=== PATIENT | female | born 1960 | race Caucasian/White ===

== ENCOUNTER 2017-12-27 18:32 | Inpatient (IN) ==
[2017-12-27] MEDS ORDERED: Isovue-370 500 ML INFUS..BTL IV ONE (21:46)
[2017-12-27] MEDS ORDERED: Acetaminophen 325 MG TABLET PO PRN (21:58)
[2017-12-27] MEDS ORDERED: traMADol 50 MG TABLET PO PRN (21:58)
--- NOTE | 2017-12-27 22:00 | Internal Med History&Physical ---
Date of Encounter: 12/27/17 Time of Encounter: 21:56 Internal Medicine - H&P: HPI Chief complaint: leg ulcer Admitted From: Home Plans for Post Hospital Care: Home History of present illness: Puja Bryant is a 57 year old woman with morbid obesity, tobacco dependence, and chronic venous stasis with ulceration who was admitted to [facility] about 2 weeks ago for sepsis due to left leg cellulitis due with failure of oral outpatient therapy. At the time she was noted to have group B Strep in her blood cultures and Pseudomonas in her wound however on chart review it appears she was discharged on IV ceftriaxone for an unclear amount of time. She followed with wound care as outpatient who added TMP/SMX due to ongoing inflammatory signs with swelling, erythema and warmth. There was concern for deep tissue infection with debridement done as per note from 12/21/17. Today she was sent to [facility] ER by wound care due to ongoing signs and is now referred here for admission. On arrival here she narrates that she has been suffering from lymphedema for years and that last year she had a fracture which required a cast. The base of the cast caused an ulceration on her skin which required wound care and antibiotics. A few months later she had another trauma to the area which has led to this spiral of events. She confirms that she was initially on vancomycin during her last hospitalization then discharged with 1 week of ceftriaxone, then last Thursday was Rx TMP/SMX then on Thursday Rx ciprofloxacin. However there has been minimal improvement. She denies fever and chills. She has applied a plethora of topical agents with no avail. She has been a chronic smoker. Past Med Surg Social Fam HX - Past Medical History Medical history: arthritis, GERD, migraine, venous stasis Psychiatric history: no psych history - Past Surgical History Surgical History: cholecystectomy, other Additional surgical history: Tubal ligation, Left foot broken 2017 - Social History Smoking Status: Former smoker Smokeless Tobacco Status: No Alcohol use: none Drug use: none - Family History Sister Living Status: Hx Family Cancer: Yes Father Living Status: Hx Family Cancer: Yes Internal Medicine - H&P: Meds Diclofenac Sodium [Voltaren] 75 mg PO BID 06/18/16 [History] Oxybutynin [Ditropan] 5 mg PO BID 02/20/17 [History] Naproxen Sodium [All Day Relief] 2 tab PO BID 12/12/17 [History] CefTRIAXone (wt based) [Rocephin] 2,000 mg INTRAVEN DAILY #7 vial 12/16/17 [Rx] Sulfamethoxazole/Trimeth DS [Bactrim DS] 1 each PO BID #20 tablet 12/21/17 [Rx] Tramadol HCl [Ultram] 50 mg PO BID PRN 7 Days #14 tab 12/21/17 [Rx] Ciprofloxacin HCl [Cipro] 500 mg PO BID #20 tablet 12/23/17 [Rx] 3 Allergy/AdvReac Type Severity Reaction Status Date / Time clindamycin Allergy Vomiting Verified 12/12/17 19:06 All Systems PM: A 10-system review of systems was performed and is negative for pertinent findings except as documented above in the HPI. - Constitutional Exam: Vitals: Reviewed General: Obese, NAD Skin: Multiple ulcerative skin breakdown changes with purulence on the medial aspect of her left leg; no foul smell. Erythematous surroundings. HEENT: Moist mucous membranes. No conjunctivae pallor. Neck: No lymphadenopathy. No JVD. No carotid bruits. No palpable thyroid. Chest: Normal thoracic expansion. Normal breath sounds. Clear to auscultation. Heart: Normal S1 & S2; rhythmic. No rubs or murmurs. Abdomen: soft and non-tender to palpation. Extremities: Bilateral lower extremity massive lymphedema. Neurological: Awake, alert and oriented to person, place and time. No focal deficits. Psych: Affect appropriate. - Assessment and plan (1) Left leg cellulitis Current Visit: Yes Status: Acute Assessment and plan: The patient has areas of mild erythema with notable skin breakdown and purulence. Old records reviewed suggest that Pseudomonas was isolated from her wound cultures however none of the antibiotics she has received in the past 2 weeks have activity against Pseudomonas (vancomycin, ceftriaxone, tmp/smx) and the ciprofloxacin that was started only 3 days ago is of intermediate sensitivity and therefore unlikely effective anyhow. Will start piptazo 3.375grs for adequate coverage. Choosing this over cefepime as there may be an anaerobic component. Podiatry consultation is requested. Will need wound care. Will obtain CT leg to rule out deep tissue infection. (2) Lymphedema of both lower extremities Current Visit: Yes Status: Chronic Assessment and plan: Unclear etiology; chronic finding. Podiatry consultation requested. (3) Tobacco dependence Current Visit: Yes Status: Chronic Assessment and plan: Says she quit 2 weeks ago after hospitalization. Continued reinforcement given. (4) Bacteremia Current Visit: Yes Status: Resolved Assessment and plan: Secondary to GBS and suspected resolved; will obtain another set of blood cultures to ensure clearance. (5) DVT prophylaxis Current Visit: Yes Status: Acute Assessment and plan: SubQ heparin. - Time Spent With Patient Total time spent is greater than 50% in coordination of care (as documented) at patient's floor/unit and/or counseling patient: Greater than 35 minutes
[2017-12-27 22:29] LABS: Basophils # 0.1 K/mcL (0.0-0.2); Basophils % 0.6 %; Eosinophils # 0.3 K/mcL (0.0-0.6); Hematocrit 34.1 % (35.3-44.9); Hemoglobin 10.8 g/dL (11.5-15.4); Immature Granulocytes % 0.4 % (0-4); Lymphocytes # 1.6 K/mcL (0.6-4.6); Lymphocytes % 19.4 %; Mean Corpuscular HGB Conc 31.7 g/dL (31.6-35.5); Mean Corpuscular Hemoglobin 28.5 pg (28.0-33.3); Mean Platelet Volume 9.9 fL (9.4-12.4); Monocytes # 0.7 K/mcL (0.0-1.3); Monocytes % 8.6 %; Neutrophils # 5.7 K/mcL (1.6-8.9); Platelet Count 371 K/mcL (140-400); Red Blood Count 3.79 M/mcL (3.82-4.97); Red Cell Distribution Width 13.5 % (11.5-14.5)
[2017-12-27 22:33] LABS: Estimated Average Glucose 120 mg/dl; Hemoglobin A1C 5.8 %
[2017-12-27 22:51] LABS: Albumin 3.3 g/dL (3.5-5.7); Albumin/Globulin Ratio 0.9 (1.1-2.2); Bilirubin,Total 0.2 mg/dL (0.3-1.0); Calcium 8.9 mg/dL (8.6-10.3); Chol/HDL Ratio 3.5 (0-4.9); Globulin 3.5 g/dL (2.4-3.5); Potassium 4.2 mEq/L (3.5-5.1); Total Protein 6.8 g/dL (6.4-8.9)
[2017-12-27] MEDS: *HR* Heparin 5,000 UNIT/ML VIAL SQ SCH (22:51)
[2017-12-27] MEDS: Piperacillin/Tazobactam 3.375 GM in 0.9 % Sodium Chloride Mini Bag 100 ML IVPB SCH (22:52)
[2017-12-27 23:03] LABS: Thyroid Stimulating Hormone 2.65 mcIU/mL (0.340-5.600)
[2017-12-27] MEDS ORDERED: Ringers Solution, Lactated 1,000 ML IVC SCH (23:45)
[2017-12-28] MEDS ORDERED: Piperacillin/Tazobactam 3.375 GM in 0.9 % Sodium Chloride Mini Bag 100 ML IVPB SCH
[2017-12-28] MEDS: *HR* Heparin 5,000 UNIT/ML VIAL SQ SCH ×3 (06:20→21:36)
[2017-12-28] MEDS: Piperacillin/Tazobactam 3.375 GM in 0.9 % Sodium Chloride Mini Bag 100 ML IVPB SCH ×3 (08:05→23:54)
[2017-12-28 08:20] LABS: Calcium 8.7 mg/dL (8.6-10.3); Potassium 4.4 mEq/L (3.5-5.1)
[2017-12-28] MEDS ORDERED: Ringers Solution, Lactated 1,000 ML IVC SCH (09:45)
[2017-12-28] MEDS: 0.9 % Sodium Chloride 1,000 ML IVC SCH (10:49)
[2017-12-28 11:31] LABS: Bilirubin,Urine Negative (Negative); Blood,Urine Negative (Negative); Clarity,Urine Clear (Clear); Color,Urine Yellow (Yellow); Glucose,Urine (UA) Normal (Normal); Ketones,Urine Negative (Negative); Leukocyte Esterase,Urine Negative (Negative); Nitrite,Urine Negative (Negative); Protein,Urine Negative (Neg-Trace); Specific Gravity,Urine 1.009 (1.010-1.025); Urobilinogen,Urine Normal (Normal)
--- NOTE | 2017-12-28 12:14 | Podiatry Consult Note ---
Date of Encounter: 12/28/17 Time of Encounter: 11:50 Assessment and Plan (1) Lymphedema of both lower extremities Current visit: Yes Status: Chronic discussed condition. educated on elevation, compression, exercises. She says she cannot use any compression devices due to the size of her legs and ability for them to fit around them. patient may benefit from lymphedema pumps which she has not yet tried. (2) Venous stasis ulcer of ankle with fat layer exposed Current visit: Yes Status: Acute previously grew pseudomonas per patient. discussed wounds present and erythema of the skin. c/w IV antibiotics. santyl ordered to be applied daily. f/u CT scan ordered to r/o abscess. Qualifiers: Varicose vein presence: with varicose veins Laterality: left Qualified Code(s): I83.023 - Varicose 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 History of Present Illness HPI: Ms. Bryant is a 57 year old female with lymphedema who is a smoker with chronic venous stasis ulceration which she says started in January of last year when a car door hit her wound. She says she goes to the [facility]. She says she has been on IV vancomycin while she was previously admitted and discharged on Ceftriaxone. She has also been on bactrim. She says her wound cultures grew pseudomonas which she says were taken by Dr. Merida in the woundcare center. She has used santyl, hydrofera blue, medi-honey and says other things for wound care. She says unna boots do help with the swelling. She says gauze, kerlix and DOMENIC wraps are useless as are compression stockings. She currently uses Santyl on the wounds. She was last seen in the woundcare center last Thursday. She was sent here for admission with worsening swelling and erythema. A CT scan was ordered. Past Med Surg Social Fam HX - Past Medical History Medical history: arthritis, GERD, venous stasis Psychiatric history: no psych history - Past Surgical History Surgical History: cholecystectomy, other Additional surgical history: Tubal ligation, Left foot broken 2016 - Social History Smoking Status: Former smoker Smokeless Tobacco Status: No Alcohol use: none Drug use: none - Family History Sister Living Status: Hx Family Cancer: Yes Father Living Status: Hx Family Cancer: Yes Medications and Allergies Diclofenac Sodium [Voltaren] 75 mg PO BID 06/18/16 [History] Oxybutynin [Ditropan] 5 mg PO BID 02/20/17 [History] Naproxen Sodium [All Day Relief] 2 tab PO BID 12/12/17 [History] CefTRIAXone (wt based) [Rocephin] 2,000 mg INTRAVEN DAILY #7 vial 12/16/17 [Rx] Sulfamethoxazole/Trimeth DS [Bactrim DS] 1 each PO BID #20 tablet 12/21/17 [Rx] Tramadol HCl [Ultram] 50 mg PO BID PRN 7 Days #14 tab 12/21/17 [Rx] Ciprofloxacin HCl [Cipro] 500 mg PO BID #20 tablet 12/23/17 [Rx] 3 Allergy/AdvReac Type Severity Reaction Status Date / Time clindamycin Allergy Vomiting Verified 12/12/17 19:06 All Systems Reviewed: The remainder of the systems were reviewed and are negative - Constitutional Constitutional: no fever(s) - Cardiovascular Cardiovascular: no chest pain, no dyspnea - Respiratory Respiratory: no cough - Musculoskeletal Musculoskeletal: joint swelling, other (lymphedema) Physical Exam - Constitutional Vitals: Temp Pulse Resp BP Pulse Ox 98.1 F 88 16 116/70 91 12/28/17 10:59 12/28/17 10:59 12/28/17 10:59 12/28/17 10:59 12/28/17 10:59 General appearance: morbidly obese, no acute distress - Ankle & Foot Exam: well developed and nourished female in no acute distress Feet are warm to touch. CFT < 3 sec x 5 digits left foot. lymphedema with induration b/l extremities. Open ulcerations medial leg on the left above the ankle with a fibrotic base. discoloration of the skin. sensation intact to touch. pain with palpation of left medial leg ulcerations. Results - Labs Result Diagrams: 12/27/17 22:12 12/28/17 06:10 Labs: Abnormal lab results RBC 3.79 M/mcL (3.82-4.97) L 12/27/17 22:12 Hgb 10.8 g/dL (11.5-15.4) L 12/27/17 22:12 Hct 34.1 % (35.3-44.9) L 12/27/17 22:12 ESR 93 mm/hr (0-15) H 12/27/17 22:12 Carbon Dioxide 32 mEq/L (23-29) H 12/28/17 06:10 BUN 23 mg/dL (6-20) H 12/28/17 06:10 Creatinine 1.38 mg/dL (0.60-1.20) H 12/28/17 06:10 Est GFR ( Amer) 48 (> 60) L 12/28/17 06:10 Est GFR (Non-Af Amer) 40 (> 60) L 12/28/17 06:10 Hemoglobin A1c 5.8 % (-5.6) H 12/27/17 22:12 Total Bilirubin 0.2 mg/dL (0.3-1.0) L 12/27/17 22:12 AST 6 Units/L (13-39) L 12/27/17 22:12 C-Reactive Protein 81 mg/L (Less than 10) H 12/27/17 22:12 Albumin 3.3 g/dL (3.5-5.7) L 12/27/17 22:12 Albumin/Globulin Ratio 0.9 (1.1-2.2) L 12/27/17 22:12 HDL Cholesterol 32 mg/dL (40-59) L 12/27/17 22:12 Ur Specific [place] 1.009 (1.010-1.025) L 12/28/17 11:03 H & H 12/27/17 Range/Units 22:12 Hgb 10.8 L (11.5-15.4) g/dL Hct 34.1 L (35.3-44.9) % All other labs normal.
--- NOTE | 2017-12-28 13:34 | Internal Med Progress Note ---
Hospitalist Progress Note - Encounter Date of Encounter: 12/28/17 Time of Encounter: 07:30 - Subjective Interval History: Patient was seen and examined at bedside Denies pain, tolerating by mouth diet, denies overnight events She denies fever chills chest pain palpitations shortness of breath nausea vomiting diarrhea loss of function - Exam Vitals: Temp Pulse Resp BP Pulse Ox 98.1 F 88 16 116/70 91 12/28/17 10:59 12/28/17 10:59 12/28/17 10:59 12/28/17 10:59 12/28/17 10:59 Exam: General: Patient is alert, oriented, no acute distress, morbidly obese Head: atraumatic, normocephalic, Eye: normal appearance, PERRL, no scleral icterus, no conjunctival injection ENT: mucous membranes moist, normal external ear exam Neck: normal inspection, short neck, trachea midline, full ROM, no carotid bruits Chest: normal inspection, symmetric chest rise Respiratory: Decreased breath sounds secondary to body habitus, Good respiratory effort. Bilateral breath sounds are clear without wheezing, crackles, or rhonchi. Cardiovascular: Distant heart sounds secondary to body habitus Regular rate and rhythm. s1 and s2 No clicks, rubs, gallops, or murmors. Abdomen: Bowel sounds present normoactive x-4 quadrants. Abdomen is soft, nondistended. no Epigastric tenderness. No guarding or rebound. No organomegaly noted, obese musculoskeletal: Spontaneously moving all extremities. +3 edema of bilateral lower extremity left greater than right, no calf tenderness Skin: warm, dry, intact. Multiple ulcers and skin breakdown changes with purulence on the medial aspect of the left lower extremity, no foul-smelling smell associated, the area is warm to touch and has erythema. Neuro: Alert and oriented x4. Sensation light touch intact. Cranial nerves 2- 12 is intact. Not aphasic,r apid hand movements intact, [id number] intact, no focal deficit Psych: Patient's affect is normal - Assessment and Plan (1) Venous stasis ulcer of ankle with fat layer exposed Current Visit: Yes Status: Acute Assessment and Plan: Patient had wound cultures from the left leg which showed Pseudomonas Was treated as inpatient/outpatient with vancomycin, ceftriaxone, Bactrim and ciprofloxacin was recently added to her regimen without improvement Was started on IV Zosyn and vancomycin Blood cultures from 8/28 showed no growth repeat blood cultures sent 12/27 Has history of blood cultures drawn on 12/12 which were positive for strep agalactiae podiatry recommendations appreciated CT with IV contrast of the lower extremity was ordered however due to acute renal failure radiologist recommends MRI- orders were placed santyl ordered to be applied daily Wound care consult CPK 55 ESR 93 CRP 81 DVT study /- Left lower extremity: normal superficial and deep exam. Right lower extremity: normal contralateral exam. (2) Left leg cellulitis Current Visit: Yes Status: Acute Assessment and Plan: Management as per above (3) Bacteremia Current Visit: Yes Status: Resolved Assessment and Plan: Cultures x2 on 12/12 were positive for strep agalactiae Cultures were again repeated on 12/22 with no growth final report 2 sets of culture in process from 12/27- will follow Will obtain echocardiogram (4) Acute renal failure Current Visit: Yes Status: Acute Assessment and Plan: Acute renal failure secondary to unknown etiology, ? medication induced , history of bacteremia Creatinine was 1.18 on 12/22 Creatinine on 12/27 is 1.53- trendoed down to 1.36 TTE ordered UA IV hydration with normal saline, watch for overload CPK WNL urine eosonophils avoid nephrotoxic medications (5) Lymphedema of both lower extremities Current Visit: Yes Status: Chronic Assessment and Plan: Unclear etiology; chronic finding. Podiatry recommendations appreciated (6) Tobacco dependence Current Visit: Yes Status: Chronic Assessment and Plan: Says she quit 2 weeks ago after hospitalization. Continued reinforcement given. (7) Morbidly obese Current Visit: Yes Status: Acute Assessment and Plan: nutrition consult counseled on nutrition (8) Pre-diabetes Current Visit: Yes Status: Acute Assessment and Plan: A1c is 5.8 Was counseled on nutrition We will follow fingersticks and cover with low-dose sliding scale (9) DVT prophylaxis Current Visit: Yes Status: Acute Assessment and Plan: SubQ heparin. - Time Spent with Patient Total time spent is greater than 50% in coordination of care (as documented) at patient's floor/unit and/or counseling patient: Internal Medicine: Result - Labs CBC & Chem 7: 12/27/17 22:12 12/28/17 06:10 Labs: Short CBC 12/27/17 Range/Units 22:12 WBC 8.4 (4.3-11.1) K/mcL Hgb 10.8 L (11.5-15.4) g/dL Hct 34.1 L (35.3-44.9) % Plt Count 371 (140-400) K/mcL Neutrophils # 5.7 (1.6-8.9) K/mcL BMP 12/27/17 12/28/17 22:12 06:10 Sodium 141 140 Potassium 4.2 4.4 Chloride 102 104 Carbon Dioxide 30 H 32 H BUN 25 H 23 H Creatinine 1.53 H 1.38 H Glucose 97 98 Calcium 8.9 8.7 Liver Function 12/27/17 Range/Units 22:12 Total Bilirubin 0.2 L (0.3-1.0) mg/dL AST 6 L (13-39) Units/L ALT 7 (7-52) Units/L Alkaline Phosphatase 80 (34-104) Units/L Albumin 3.3 L (3.5-5.7) g/dL Urine 12/28/17 Range/Units 11:03 Urine Color Yellow (Yellow) Urine Clarity Clear (Clear) Urine pH 7.0 (5.0-8.0) pH Units Ur Specific [place] 1.009 L (1.010-1.025) Urine Protein Negative (Neg-Trace) mg/dL Urine Glucose (UA) Normal (Normal) mg/dL (1) Venous stasis ulcer of ankle with fat layer exposed Qualifiers: Varicose vein presence: with varicose veins Laterality: left Qualified Code( s): I83.023 - Varicose 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
[2017-12-28] MEDS ORDERED: *HR* OxyCODONE/APAP 5/325 TABLET PO PRN (13:55)
[2017-12-28] MEDS: Ondansetron 4 MG/2 ML VIAL IVP PRN (15:14)
[2017-12-28] MEDS: *HR* HYDROcodone/Acet 5/325 mg TABLET PO PRN (23:59)
[2017-12-29] MEDS: *HR* Heparin 5,000 UNIT/ML VIAL SQ SCH ×3 (05:12→20:44)
[2017-12-29 05:51] LABS: Hematocrit 32.9 % (35.3-44.9); Hemoglobin 10.2 g/dL (11.5-15.4); Mean Corpuscular Hemoglobin 27.9 pg (28.0-33.3); Mean Corpuscular Volume 90.1 fL (83.0-100.0); Mean Platelet Volume 9.6 fL (9.4-12.4); Platelet Count 344 K/mcL (140-400); Red Blood Count 3.65 M/mcL (3.82-4.97); Red Cell Distribution Width 13.7 % (11.5-14.5)
[2017-12-29 06:16] LABS: Calcium 8.3 mg/dL (8.6-10.3); Potassium 4.3 mEq/L (3.5-5.1)
[2017-12-29] MEDS: Piperacillin/Tazobactam 3.375 GM in 0.9 % Sodium Chloride Mini Bag 100 ML IVPB SCH ×2 (09:04→16:29)
[2017-12-29] MEDS: 0.9 % Sodium Chloride 1,000 ML IVC SCH (09:05)
[2017-12-29] MEDS ORDERED: Perflutren Lipid Microsphere 1.3 ML in 0.9 % Sodium Chloride 8.7 ML IVP ONE (10:01)
--- NOTE | 2017-12-29 11:02 | Internal Med Progress Note ---
Hospitalist Progress Note - Encounter Date of Encounter: 12/29/17 Time of Encounter: 10:56 - Subjective Interval History: Patient was seen and examined at bedside Denies pain, tolerating by mouth diet, denies overnight events She denies fever chills chest pain palpitations shortness of breath nausea vomiting diarrhea loss of function - Exam Vitals: Temp Pulse Resp BP Pulse Ox 97.6 F 88 14 97/63 93 12/29/17 07:07 12/29/17 07:07 12/29/17 07:07 12/29/17 07:07 12/29/17 07:07 Exam: General: Patient is alert, oriented, no acute distress, morbidly obese Head: atraumatic, normocephalic, Eye: normal appearance, PERRL, no scleral icterus, no conjunctival injection ENT: mucous membranes moist, normal external ear exam Neck: normal inspection, short neck, trachea midline, full ROM, no carotid bruits Chest: normal inspection, symmetric chest rise Respiratory: Decreased breath sounds secondary to body habitus, Good respiratory effort. Bilateral breath sounds are clear without wheezing, crackles, or rhonchi. Cardiovascular: Distant heart sounds secondary to body habitus Regular rate and rhythm. s1 and s2 No clicks, rubs, gallops, or murmors. Abdomen: Bowel sounds present normoactive x-4 quadrants. Abdomen is soft, nondistended. no Epigastric tenderness. No guarding or rebound. No organomegaly noted, obese musculoskeletal: Spontaneously moving all extremities. +3 edema of bilateral lower extremity left greater than right, no calf tenderness Skin: warm, dry, intact. Multiple ulcers and skin breakdown changes with purulence on the medial aspect of the left lower extremity, no foul-smelling smell associated, the area is warm to touch and has erythema. Neuro: Alert and oriented x4. Sensation light touch intact. Cranial nerves 2- 12 is intact. Not aphasic,r apid hand movements intact, [id number] intact, no focal deficit Psych: Patient's affect is normal - Assessment and Plan (1) Venous stasis ulcer of ankle with fat layer exposed Current Visit: Yes Status: Acute Assessment and Plan: Patient had wound cultures from the left leg which showed Pseudomonas Was treated as inpatient/outpatient with vancomycin, ceftriaxone, Bactrim and ciprofloxacin was recently added to her regimen without improvement Was started on IV Zosyn and vancomycin Blood cultures from 8/28 showed no growth repeat blood cultures sent 12/27- prelim no growth Has history of blood cultures drawn on 12/12 which were positive for strep agalactiae podiatry recommendations appreciated CT with IV contrast of the lower extremity was ordered however due to acute renal failure radiologist recommends MRI- pending will follow results santyl ordered to be applied daily Wound care consult CPK 55 ESR 93 CRP 81 DVT study /- Left lower extremity: normal superficial and deep exam. Right lower extremity: normal contralateral exam. (2) Left leg cellulitis Current Visit: Yes Status: Acute Assessment and Plan: Management as per above (3) Bacteremia Current Visit: Yes Status: Resolved Assessment and Plan: Cultures x2 on 12/12 were positive for strep agalactiae Cultures were again repeated on 12/22 with no growth final report 2 sets of culture in process from 12/27- will follow Will obtain echocardiogram (4) Acute renal failure Current Visit: Yes Status: Acute Assessment and Plan: Acute renal failure secondary to unknown etiology, ? medication induced , history of bacteremia Creatinine was 1.18 on 12/22 Creatinine on 12/27 is 1.53- is trending down on IVF TTE ordered IV hydration with normal saline for one more day at 60 cc per hour - watch for overload ( no crackles heard on exam 12/29) CPK WNL urine negative for WBC doubt secondary to interstitial nephritis - will send urine eosinophils, renal US avoid nephrotoxic medications (5) Lymphedema of both lower extremities Current Visit: Yes Status: Chronic Assessment and Plan: Unclear etiology; chronic finding. Podiatry recommendations appreciated (6) Tobacco dependence Current Visit: Yes Status: Chronic Assessment and Plan: Says she quit 2 weeks ago after hospitalization. Continued reinforcement given. (7) Morbidly obese Current Visit: Yes Status: Acute Assessment and Plan: nutrition consult counseled on nutrition (8) Pre-diabetes Current Visit: Yes Status: Acute Assessment and Plan: A1c is 5.8 Was counseled on nutrition We will follow fingersticks and cover with low-dose sliding scale (9) DVT prophylaxis Current Visit: Yes Status: Acute Assessment and Plan: SubQ heparin. - Time Spent with Patient Total time spent is greater than 50% in coordination of care (as documented) at patient's floor/unit and/or counseling patient: Internal Medicine: Result - Labs CBC & Chem 7: 12/29/17 05:30 12/29/17 05:30 Labs: Short CBC 12/29/17 Range/Units 05:30 WBC 5.6 (4.3-11.1) K/mcL Hgb 10.2 L (11.5-15.4) g/dL Hct 32.9 L (35.3-44.9) % Plt Count 344 (140-400) K/mcL BMP 12/29/17 05:30 Sodium 138 Potassium 4.3 Chloride 103 Carbon Dioxide 28 BUN 20 Creatinine 1.24 H Glucose 97 Calcium 8.3 L Urine 12/28/17 Range/Units 11:03 Urine Color Yellow (Yellow) Urine Clarity Clear (Clear) Urine pH 7.0 (5.0-8.0) pH Units Ur Specific [place] 1.009 L (1.010-1.025) Urine Protein Negative (Neg-Trace) mg/dL Urine Glucose (UA) Normal (Normal) mg/dL (1) Venous stasis ulcer of ankle with fat layer exposed Qualifiers: Varicose vein presence: with varicose veins Laterality: left Qualified Code( s): I83.023 - Varicose 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
--- NOTE | 2017-12-29 12:25 | Infectious Disease Consult ---
Date of Encounter: 12/29/17 Time of Encounter: 12:24 Assessment and Plan (1) Left leg cellulitis Status: Acute Assessment and plan: Location: Left leg. Causative organism: Unclear. Likely secondary to chronic ulcer to the LLE. No SIRS criteria noted on exam. Blood cultures drawn 12/27/17 are NGTD. ESR 93, CRP 81. MRI attempted today, but aborted due to patient not able to tolerate. Discontinue Vanc and Zosyn. Start Cefepime 2 grams IV Q12H. Duration of treatment depends on the clinical picture. Monitor renal function and for drug toxicity and dose-adjust antibiotics. (2) Acute kidney injury Status: Acute Assessment and plan: Etiology unclear. Serum creatinine 1.53 on admission. Improved. Serum creatinine trending down. Continue to trend. Dose-adjust medications. Avoid nephrotoxins as able. (3) Venous stasis ulcer of ankle with fat layer exposed Status: Acute Assessment and plan: Location: Left lower leg. Secondary to traumatic wound in January 2017. Non-healing due to lymphedema, venous stasis. Podiatry consulted to assist with wound management. ABIs normal. Qualifiers: Varicose vein presence: with varicose veins Laterality: left Qualified Code(s): I83.023 - Varicose 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 (4) Lymphedema of both lower extremities Status: Chronic (5) Morbidly obese Status: Acute Infectious Disease HPI - Data of Consult Patient: new to practice Consult date: 12/29/17 Requesting Physician: Lynette Jessica MD - Consult Narrative Reason for consult: Cellulitis History of present illness: Ms. Bryant is a 57 year old female with a past medical history of arthritis, GERD , migraines, venous stasis, and lymphedema of the bilateral lower extremities. The patient was admitted to the hospital December 27 for left leg cellulitis. We are consulted December 29 for antibiotic recommendations for left leg cellulitis. Briefly, the patient is a 57-year-old female with past medical history as stated above. The patient has had a ulcer for close to a year now that started last January when her car door slammed shut on her leg. She reported that she had been seeing the wound care clinic pretty regularly until June when she stopped going because she could not afford the visits. Since then, her has been performing her dressing changes. She states about a month ago, the wound regressed and she had a sibling and pain at the wound site. She was admitted to [facility] and was diagnosed with cellulitis and group B strep bacteremia. She was treated with 3 days of Zosyn and 4 days of vancomycin while inpatient and was transitioned to IV Rocephin on discharge and completed an additional 7 days. Repeat blood cultures on December 22 1 set were negative. Need redness and drainage from her wound so she was started to the IV Rocephin she was already receiving. She went back on Thursday and the Rocephin had been completed so she was started on oral Cipro in addition to the by mouth Bactrim. She was seen in wound care on Thursday and was advised to come to the emergency department for evaluation due to regression of her wound. Upon arrival to the ER, the patient is afebrile hemodynamically stated her white blood cell count was normal. She did have an acute kidney injury with a serum creatinine of 1.53. Her ESR was elevated at 93 with a CRP of 81. LFTs were normal. TSH was within normal limits. Blood cultures were obtained 2 sets. She was given a dose of IV ceftazidime in the emergency department and transferred here for further evaluation. Since admission, the patient has remained afebrile hemodynamically stable. Podiatry is consulted to assist with wound management. Her acute kidney injury is improving. Her CK level was checked and was normal. Urinalysis was negative. Currently, she is on Vanco and Zosyn. We have been asked to evaluate and make further recommendations. During my exam today, the patient endorses a history as stated above. She denies any fevers or chills or rigors. She denies any headache or neck pain. She denies any weakness or dizziness. She denies any congestion, earache, or sore throat. She denies any chest pain, shortness of breath, or cough. She denies any nausea, vomiting, diarrhea, or constipation. She denies any abdominal pain or urinary complaints. She states her appetite is good. She complains of some pain at the site of the ulceration as well as redness and swelling to the left lower extremity up to the groin. She denies any oral thrush or other skin lesions. An MRI of the left lower extremity was attempted , but the patient cannot tolerate lying flat for that long. The patient lives at home with her . She does work in a local factory. Up until about 4 weeks ago she smoked a pack of cigarettes per day. She denies any alcohol or illicit drug use. She does have 4 dogs at home, but denies any bites or scratches. She denies any recent travel outside the [facility]. She denies any prolonged exposure to water. She denies any chronic infectious diseases. CC: Lynette Jessica MD Past Med Surg Social Fam HX - Past Medical History Attestation: Yes The following information was validated with the patient. Source: patient, old records reviewed, nursing notes reviewed Medical history: arthritis, GERD, venous stasis Psychiatric history: no psych history - Past Surgical History Surgical History: cholecystectomy, other Additional surgical history: Tubal ligation, Left foot broken 2017 - Social History Smoking Status: Former smoker Smokeless Tobacco Status: No Alcohol use: none Drug use: none - Family History Sister Living Status: Hx Family Cancer: Yes Father Living Status: Hx Family Cancer: Yes Infectious Disease-CN:Meds Naproxen [Naprosyn] 500 mg PO BID PRN 12/29/17 [History] Oxybutynin Chloride [Ditropan Xl] 10 mg PO DAILY 12/29/17 [History] 3 Allergy/AdvReac Type Severity Reaction Status Date / Time clindamycin AdvReac Vomiting Verified 12/28/17 15:56 All systems: reviewed and no additional remarkable complaints except as stated Exam - Constitutional Vitals: Temp Pulse Resp BP Pulse Ox 97.6 F 88 14 97/63 93 12/29/17 07:07 12/29/17 07:07 12/29/17 07:07 12/29/17 07:07 12/29/17 07:07 General appearance: cooperative, morbidly obese, no acute distress - Head Head exam: Present: atraumatic, normal inspection, normocephalic - Eye Eye exam: Present: EOMI, normal appearance, PERRL Pupils: Present: normal accommodation - ENT ENT exam: Present: mucous membranes moist - Neck Neck exam: Present: normal inspection - Respiratory Respiratory exam: Present: CTAB. Absent: rales, respiratory distress, rhonchi, wheezes - Cardiovascular Cardiovascular exam: Present: RRR, +S1, +S2 - GI/Abdominal GI/Abdominal exam: Present: distended (obese), normal bowel sounds, soft. Absent: tenderness - Extremities Exam Extremities exam: Present: pedal edema (3+ pitting edema noted to the left lower extremity), tenderness (LLE). Absent: joint swelling, normal inspection ( Venous stasis dermatitis noted to the bilateral lower extremities.) Additional comments: Erythema noted to the LLE extending from the ankle to the left groin. Ulceration noted to the medial aspect of the left lower leg with wound bed pink and moist. Serous drainage noted. No fluctuance, purulent drainage, or tenderness noted. - Neurological Exam Neurological exam: Present: alert, oriented X3, no focal deficits - Psychiatric Psychiatric exam: Present: normal affect, normal mood - Skin Skin exam: Present: dry, intact, normal color, warm Infectious Disease CN: Results - Labs CBC & Chem 7: 12/29/17 05:30 12/29/17 05:30 Cultures: Cultures 12/27/17 22:12 Blood Culture - Preliminary Peripheral Venipuncture Culture is incubating and being continuously monitored for growth. Final report to follow. 12/27/17 22:12 Blood Culture - Preliminary Peripheral Venipuncture Culture is incubating and being continuously monitored for growth. Final report to follow. Serology: Serology 12/28/17 Range/Units 11:03 Urine Color Yellow (Yellow) Urine Clarity Clear (Clear) Urine pH 7.0 (5.0-8.0) pH Units Ur Specific [place] 1.009 L (1.010-1.025) Urine Protein Negative (Neg-Trace) mg/dL Urine Glucose (UA) Normal (Normal) mg/dL Urine Ketones Negative (Negative) mg/dL Urine Blood Negative (Negative) Urine Nitrite Negative (Negative) Urine Bilirubin Negative (Negative) Urine Urobilinogen Normal (Normal) mg/dL Ur Leukocyte Esterase Negative (Negative) Ur Culture Indicated? NO (NO) - Attending Attestation I examined this patient and my medical decision-making was reviewed with the Resident Physician. I agree with the documented findings, disposition and treatment plan as described except to the extent set forth below. This is an addendum to original report dictated by Korina San CNP. Please refer to his note for full detail. Patient is 7-year-old woman with morbid obesity KS of 64 who also has bilateral edema and venous stasis presented with left leg cellulitis and acute kidney injury. They could not do a CAT scan with contrast because the patient's creatinine was elevated and apparently the patient could not lay flat enough for the MRI. Patient was initially started on vancomycin and Zosyn. ESR was 93 CRP was 81. We were asked to evaluate the patient and make further recommendations. At this point the culture swab culture grew pseudomonas. We will DC the vancomycin and Zosyn and start the patient on cefepime. Dose adjust cefepime based on her creatinine clearance. Duration of treatment 14 days total. Patient will need a right prior to discharge. The Pseudomonas was intermediate to resistant to fluoroquinolones. While on antibiotics patient needs weekly labs including CBC, BMP, ESR and CRP
[2017-12-29] MEDS ORDERED: Aminoglycoside Consult 1 EACH MC ONE (14:22)
[2017-12-29] MEDS: Cefepime HCl 2,000 MG in 0.9 % Sodium Chloride Mini Bag 100 ML IVPB SCH (19:45)
[2017-12-30 03:23] LABS: Hematocrit 33.5 % (35.3-44.9); Hemoglobin 10.6 g/dL (11.5-15.4); Mean Corpuscular HGB Conc 31.6 g/dL (31.6-35.5); Mean Corpuscular Volume 88.4 fL (83.0-100.0); Mean Platelet Volume 9.5 fL (9.4-12.4); Platelet Count 364 K/mcL (140-400); Red Blood Count 3.79 M/mcL (3.82-4.97); Red Cell Distribution Width 13.5 % (11.5-14.5)
[2017-12-30 03:43] LABS: BUN/Creatinine Ratio 15 (6-26); Blood Urea Nitrogen 16 mg/dL (6-20); Calcium 8.7 mg/dL (8.6-10.3); Carbon Dioxide 27 mEq/L (23-29); Chloride 103 mEq/L (98-107); Glucose 106 mg/dL (70-105); Osmolality,Calculated 286 (280-300); Potassium 4.2 mEq/L (3.5-5.1); Sodium 137 mEq/L (136-145); eGFR For Non-African Americans 53 (> 60)
[2017-12-30] MEDS: Cefepime HCl 2,000 MG in 0.9 % Sodium Chloride Mini Bag 100 ML IVPB SCH ×2 (07:03→16:31)
[2017-12-30] MEDS: *HR* Heparin 5,000 UNIT/ML VIAL SQ SCH ×3 (07:03→22:08)
[2017-12-30] MEDS ORDERED: Naloxone 0.4 MG/ML INJ IVP PRN (08:16)
[2017-12-30] MEDS: 0.9 % Sodium Chloride 1,000 ML IVC SCH ×2 (10:23→10:24)
[2017-12-30] MEDS: Ondansetron 4 MG/2 ML VIAL IVP PRN (10:30)
--- NOTE | 2017-12-30 14:14 | Podiatry Progress Note ---
Date of Encounter: 12/30/17 Time of Encounter: 12:00 - Assessment and Plan (1) Lymphedema Current Visit: No Status: Chronic lymphedema with associated stasis dermatitis and venous stasis ulcerations Assessed at bedside Chronic ulcerations with limited improvement Patient applying santyl at this time and allevyn in place Will write orders for dakins cleanse of the wounds with application of UNNA boot , kerlix and DOMENIC for compression change MWF Elevate at all times. Patient was ordered MRI and aborted , states she cannot lay flat- refusing to try again. Continue ceftriaxone as recommended per ID Once stable may be discharged to follow up at [facility] as she was previously doing. (2) Left leg cellulitis Current Visit: Yes Status: Acute Subjective Interval history: Ms. Bryant is a 57 year old female with lymphedema who is a smoker with chronic venous stasis ulceration which she says started in January of last year when a car door hit her wound. She says she goes to the [facility]. She is being followed inpatient by podiatry and ID. Patient was started is currently on IV ceftriaxone. Patient was ordered MRI yesterday but states she could not tolerate laying flat. Nurse reports that patient has been refusing dressing changes to LLE and refused application of a kerlix. Patient has allevyn in place at this time. She is currently using santyl on wounds. Patient denies any fevers, chills, n/v or flu like symptoms. Objective - Vital Signs Vital Signs: Vital Signs Temp Pulse Resp BP Pulse Ox 12/30/17 10:21 98.5 F 89 16 158/95 93 12/30/17 05:06 98.0 F 82 18 149/91 90 12/29/17 21:23 98.3 F 101 17 107/62 93 12/29/17 16:27 98.2 F 92 16 132/75 93 Intake and Output 12/29/17 12/30/17 12/30/17 23:59 07:59 15:59 Intake Total 720 / 720 900 / 900 1460 / 1460 Output Total 350 / 350 Balance 370 / 370 900 / 900 1460 / 1460 Intake: IV Fluids 600 / 600 100 / 100 1100 / 1100 Maxipime 2,000 MG In 0.9 % 100 / 100 100 / 100 Sodium Chloride (Mini-Bag +) 100 ML @ 200 mls/hr IVPB Q12HR [facility] Rx#:[id number] Vancocin 1,750 MG In 0.9 % 500 / 500 Sodium Chloride 500 ML @ 333.3 mls/hr IVPB Q12H [facility] Rx#: [id number] Oral 120 / 120 800 / 800 360 / 360 Output: Urine 350 / 350 Other: Meal Dinner Lunch Percent of Meal Consumed 90% 100% # Voids 1 3 2 # Bowel Movements 1 Weight 165 kg Patient Weight 12/30/17 23:59 Weight 165 kg - Exam Exam: General Examination: CONSTITUTIONAL: Alert, oriented, in no acute distress, non-toxic. EXTREMITIES: CFT 3 seconds all toes. Edema +2 pitting bilteral lymphedema and pedal pulses palpable. SKIN: Skin with decreased turgor, decreased subcutaneous tissue, skin thin and shiny with trophic changes associated with comorbidities as described in history.. BLE lymphedema noted with stasis dermatitis. Multiple large venous stasis ulcerations noted to medial aspect of LLE. 100% yellow fibrous tissue to base. Mild surrounding edema, erythema and warmth. No odor. Serous drainage. Pain with palpation. No areas of fluctuance. No ascending cellulitis. NEUROLOGIC: Grossly intact epicritic and vibratory sensation from toes to tibia, evidenced with use of monofilament 5.07 and tuning fork at 128 CPS. Patient complains of paresthesias and dysesthesias. There is no clinical evidence of loss of protective sensation. - Lab Result Diagrams: 12/30/17 03:11 12/30/17 03:11 Labs: Abnormal lab results RBC 3.79 M/mcL (3.82-4.97) L 12/30/17 03:11 Hgb 10.6 g/dL (11.5-15.4) L 12/30/17 03:11 Hct 33.5 % (35.3-44.9) L 12/30/17 03:11 ESR 93 mm/hr (0-15) H 12/27/17 22:12 Est GFR (Non-Af Amer) 53 (> 60) L 12/30/17 03:11 Glucose 106 mg/dL (70-105) H 12/30/17 03:11 Hemoglobin A1c 5.8 % (-5.6) H 12/27/17 22:12 Total Bilirubin 0.2 mg/dL (0.3-1.0) L 12/27/17 22:12 AST 6 Units/L (13-39) L 12/27/17 22:12 C-Reactive Protein 81 mg/L (Less than 10) H 12/27/17 22:12 Albumin 3.3 g/dL (3.5-5.7) L 12/27/17 22:12 Albumin/Globulin Ratio 0.9 (1.1-2.2) L 12/27/17 22:12 HDL Cholesterol 32 mg/dL (40-59) L 12/27/17 22:12 Ur Specific [place] 1.009 (1.010-1.025) L 12/28/17 11:03 Vancomycin Trough 26 mcg/mL (5-10) H 12/30/17 03:11 Consult Discharge Plan - Plan Referrals: NONE,PCP [Primary Care Provider] -
--- NOTE | 2017-12-30 15:11 | Internal Med Progress Note ---
Hospitalist Progress Note - Encounter Date of Encounter: 12/30/17 Time of Encounter: 07:45 - Subjective Interval History: Patient was seen and examined at bedside Denies pain, tolerating by mouth diet, denies overnight events She denies fever chills chest pain palpitations shortness of breath nausea vomiting diarrhea loss of function - Exam Vitals: Temp Pulse Resp BP Pulse Ox 98.5 F 89 16 158/95 93 12/30/17 10:21 12/30/17 10:21 12/30/17 10:21 12/30/17 10:21 12/30/17 10:21 Exam: General: Patient is alert, oriented, no acute distress, morbidly obese Head: atraumatic, normocephalic, Eye: normal appearance, PERRL, no scleral icterus, no conjunctival injection ENT: mucous membranes moist, normal external ear exam Neck: normal inspection, short neck, trachea midline, full ROM, no carotid bruits Chest: normal inspection, symmetric chest rise Respiratory: Decreased breath sounds secondary to body habitus, Good respiratory effort. Bilateral breath sounds are clear without wheezing, crackles, or rhonchi. Cardiovascular: Distant heart sounds secondary to body habitus Regular rate and rhythm. s1 and s2 No clicks, rubs, gallops, or murmors. Abdomen: Bowel sounds present normoactive x-4 quadrants. Abdomen is soft, nondistended. no Epigastric tenderness. No guarding or rebound. No organomegaly noted, obese musculoskeletal: Spontaneously moving all extremities. +3 edema of bilateral lower extremity left greater than right, no calf tenderness Skin: warm, dry, intact. Multiple ulcers and skin breakdown changes with purulence on the medial aspect of the left lower extremity, no foul-smelling smell associated, the area is warm to touch and has erythema. Neuro: Alert and oriented x4. Sensation light touch intact. Cranial nerves 2- 12 is intact. Not aphasic,r apid hand movements intact, [id number] intact, no focal deficit Psych: Patient's affect is normal - Assessment and Plan (1) Venous stasis ulcer of ankle with fat layer exposed Current Visit: Yes Status: Acute Assessment and Plan: Patient had wound cultures from the left leg which showed Pseudomonas Was treated as inpatient/outpatient with vancomycin, ceftriaxone, Bactrim and ciprofloxacin was recently added to her regimen without improvement on cefepime from 12/30/17 Blood cultures from 12/22 showed no growth repeat blood cultures sent 12/27- prelim no growth Has history of blood cultures drawn on 12/12 which were positive for strep agalactiae podiatry recommendations appreciated CT with IV contrast of the lower extremity was ordered however due to acute renal failure radiologist recommends MRI-she could not tolerate santyl ordered to be applied daily Wound care consulted ID recommendations appreciated CPK 55 ESR 93 CRP 81 DVT study /- Left lower extremity: normal superficial and deep exam. Right lower extremity: normal contralateral exam. (2) Left leg cellulitis Current Visit: Yes Status: Acute Assessment and Plan: Management as per above (3) Bacteremia Current Visit: Yes Status: Resolved Assessment and Plan: Cultures x2 on 12/12 were positive for strep agalactiae Cultures were again repeated on 12/22 with no growth final report 2 sets of culture in process from 12/27- will follow TTE on 12/29 Normal LV chamber size, wall thickness and function. LVEF 65%. Normal right ventricular structure and function. Mildly dilated left atrium. No significant valvular abnormality. No evidence of gross valvular vegetation on current study. Mild pulmonary hypertension. Estimated RVSP is 42 mmHg. Estimated RA pressure is 10 mmHg. (4) Acute renal failure Current Visit: Yes Status: Resolved Assessment and Plan: Acute renal failure secondary to unknown etiology, ? medication induced , history of bacteremia Creatinine was 1.18 on 12/22 creatinine has trended down to WNL, GFR >60 CPK WNL urine eosonophils 0 renal US - no acute disease avoid nephrotoxic medications (5) Lymphedema of both lower extremities Current Visit: Yes Status: Chronic Assessment and Plan: Unclear etiology; chronic finding. Podiatry recommendations appreciated (6) Tobacco dependence Current Visit: Yes Status: Chronic Assessment and Plan: Says she quit 2 weeks ago after hospitalization. Continued reinforcement given. (7) Morbidly obese Current Visit: Yes Status: Acute Assessment and Plan: nutrition consult counseled on nutrition (8) Pre-diabetes Current Visit: Yes Status: Acute Assessment and Plan: A1c is 5.8 Was counseled on nutrition We will follow fingersticks and cover with low-dose sliding scale (9) DVT prophylaxis Current Visit: Yes Status: Acute Assessment and Plan: SubQ heparin. - Time Spent with Patient Total time spent is greater than 50% in coordination of care (as documented) at patient's floor/unit and/or counseling patient: Internal Medicine: Result - Labs CBC & Chem 7: 12/30/17 03:11 12/30/17 03:11 Labs: Short CBC 12/30/17 Range/Units 03:11 WBC 6.6 (4.3-11.1) K/mcL Hgb 10.6 L (11.5-15.4) g/dL Hct 33.5 L (35.3-44.9) % Plt Count 364 (140-400) K/mcL BMP 12/30/17 03:11 Sodium 137 Potassium 4.2 Chloride 103 Carbon Dioxide 27 BUN 16 Creatinine 1.07 Glucose 106 H Calcium 8.7 - Impressions Impressions Retroperitoneum Ultrasound 12/29/17 17:00 IMPRESSION: Unremarkable ultrasound of the kidneys. D/ / Daija Hadley MD / Daija Hadley MD Interpreting Provider: Daija Hadley MD Consult Discharge Plan - Plan Referrals: NONE,PCP [Primary Care Provider] - (1) Venous stasis ulcer of ankle with fat layer exposed Qualifiers: Varicose vein presence: with varicose veins Laterality: left Qualified Code( s): I83.023 - Varicose 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
--- NOTE | 2017-12-30 16:42 | Infectious Disease Progress No ---
Date of Encounter: 12/30/17 Time of Encounter: 12:05 - Assessment and Plan (1) Left leg cellulitis Current Visit: Yes Status: Acute Location: Left leg. Causative organism: Unclear. Likely secondary to chronic ulcer to the LLE. No SIRS criteria noted on exam. Blood cultures drawn 12/27/17 are NGTD. ESR 93, CRP 81. MRI attempted today, but aborted due to patient not able to tolerate. Continue Cefepime 2 grams IV Q12H. Duration of treatment depends on the clinical picture, but likely 14 days. Monitor renal function and for drug toxicity and dose-adjust antibiotics. Consult VAT prior to discharge for Powerglide placement. (2) Acute kidney injury Current Visit: Yes Status: Acute Etiology unclear. Serum creatinine 1.53 on admission. Resolved. Continue to trend. Dose-adjust medications. Avoid nephrotoxins as able. (3) Venous stasis ulcer of ankle with fat layer exposed Current Visit: Yes Status: Acute Location: Left lower leg. Secondary to traumatic wound in January 2017. Non-healing due to lymphedema, venous stasis. Podiatry consulted to assist with wound management. ABIs normal. Qualifiers: Varicose vein presence: with varicose veins Laterality: left Qualified Code(s): I83.023 - Varicose 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 (4) Lymphedema of both lower extremities Current Visit: Yes Status: Chronic (5) Morbidly obese Current Visit: Yes Status: Acute - Subjective Interval history: Patient seen and examined. No acute events noted overnight. Patient states that overall her leg feels about the same. Denies any fevers, chills, or rigors. Denies chest pain, shortness of breath, or cough. Denies any vomiting or diarrhea. She does report some nausea and states she was unable to eat breakfast. Denies any abdominal pain or urinary complaints. Reports persistent pain in the left lower extremity and states she does not think it looks much better today. Infect Dis PN-Objective Data - Labs CBC & Chem 7: 12/31/17 05:49 12/31/17 05:49 Labs: Laboratory Results - last 24 hr 12/30/17 12/30/17 12/30/17 03:11 03:11 03:11 WBC 6.6 RBC 3.79 L Hgb 10.6 L Hct 33.5 L MCV 88.4 MCH 28.0 MCHC 31.6 RDW 13.5 Plt Count 364 MPV 9.5 Sodium 137 Potassium 4.2 Chloride 103 Carbon Dioxide 27 BUN 16 Creatinine 1.07 Est GFR ( Amer) > 60 Est GFR (Non-Af Amer) 53 L BUN/Creatinine Ratio 15 Glucose 106 H Calculated Osmolality 286 Calcium 8.7 Ur Eosinophil Smear Vancomycin Trough 26 H 12/30/17 09:47 WBC RBC Hgb Hct MCV MCH MCHC RDW Plt Count MPV Sodium Potassium Chloride Carbon Dioxide BUN Creatinine Est GFR ( Amer) Est GFR (Non-Af Amer) BUN/Creatinine Ratio Glucose Calculated Osmolality Calcium Ur Eosinophil Smear 0 Vancomycin Trough Cultures: Cultures 12/27/17 22:12 Blood Culture - Preliminary Peripheral Venipuncture Culture is incubating and being continuously monitored for growth. Final report to follow. 12/27/17 22:12 Blood Culture - Preliminary Peripheral Venipuncture Culture is incubating and being continuously monitored for growth. Final report to follow. Serology 12/30/17 12/28/17 Range/Units 09:47 11:03 Urine Color Yellow (Yellow) Urine Clarity Clear (Clear) Urine pH 7.0 (5.0-8.0) pH Units Ur Specific [place] 1.009 L (1.010-1.025) Urine Protein Negative (Neg-Trace) mg/dL Urine Glucose (UA) Normal (Normal) mg/dL Urine Ketones Negative (Negative) mg/dL Urine Blood Negative (Negative) Urine Nitrite Negative (Negative) Urine Bilirubin Negative (Negative) Urine Urobilinogen Normal (Normal) mg/dL Ur Leukocyte Esterase Negative (Negative) Ur Eosinophil Smear 0 (None Seen) % Ur Culture Indicated? NO (NO) - Impressions Impressions Retroperitoneum Ultrasound 12/29/17 17:00 IMPRESSION: Unremarkable ultrasound of the kidneys. D/ / Daija Hadley MD / Daija Hadley MD Interpreting Provider: Daija Hadley MD Exam - Constitutional Vitals: Temp Pulse Resp BP Pulse Ox 98.5 F 89 16 158/95 93 12/30/17 10:21 12/30/17 10:21 12/30/17 10:21 12/30/17 10:21 12/30/17 10:21 General appearance: cooperative, morbidly obese, no acute distress - Head Head exam: Present: atraumatic, normal inspection, normocephalic - Eye Eye exam: Present: EOMI, normal appearance, PERRL Pupils: Present: normal accommodation - ENT ENT exam: Present: mucous membranes moist - Neck Neck exam: Present: normal inspection - Respiratory Respiratory exam: Present: CTAB. Absent: rales, respiratory distress, rhonchi, wheezes - Cardiovascular Cardiovascular exam: Present: RRR, +S1, +S2 - GI/Abdominal GI/Abdominal exam: Present: distended (Obese), normal bowel sounds, soft. Absent: tenderness - Extremities Exam Extremities exam: Present: pedal edema (2+ edema noted to the left lower extremity.). Absent: joint swelling, normal inspection (Lymphedema noted to bilateral lower extremity, left worse than right. Venous stasis dermatitis noted to the bilateral lower extremities.), tenderness Additional comments: Marked erythema to the lower aspect of the left lower extremity, mildly improved since yesterday. Left lower extremity Allevyn dressing remains clean, dry, and intact. - Neurological Exam Neurological exam: Present: alert, oriented X3, no focal deficits - Psychiatric Psychiatric exam: Present: normal affect, normal mood - Skin Skin exam: Present: dry, intact, normal color, warm Consult Discharge Plan - Plan Referrals: NONE,PCP [Primary Care Provider] - - Attending Attestation I examined this patient and my medical decision-making was reviewed with the Resident Physician. I agree with the documented findings, disposition and treatment plan as described except to the extent set forth below.
[2017-12-31] MEDS: *HR* Heparin 5,000 UNIT/ML VIAL SQ SCH ×3 (05:13→20:31)
[2017-12-31] MEDS: Cefepime HCl 2,000 MG in 0.9 % Sodium Chloride Mini Bag 100 ML IVPB SCH ×2 (05:13→19:35)
[2017-12-31 06:24] LABS: Hematocrit 31.3 % (35.3-44.9); Hemoglobin 9.7 g/dL (11.5-15.4); Mean Corpuscular Hemoglobin 27.8 pg (28.0-33.3); Mean Corpuscular Volume 89.7 fL (83.0-100.0); Mean Platelet Volume 9.6 fL (9.4-12.4); Platelet Count 330 K/mcL (140-400); Red Blood Count 3.49 M/mcL (3.82-4.97); Red Cell Distribution Width 13.5 % (11.5-14.5)
[2017-12-31 08:29] LABS: BUN/Creatinine Ratio 15 (6-26); Blood Urea Nitrogen 15 mg/dL (6-20); Calcium 8.3 mg/dL (8.6-10.3); Carbon Dioxide 29 mEq/L (23-29); Chloride 104 mEq/L (98-107); Glucose 123 mg/dL (70-105); Osmolality,Calculated 292 (280-300); Potassium 4.2 mEq/L (3.5-5.1); Sodium 140 mEq/L (136-145); eGFR For Non-African Americans 56 (> 60)
--- NOTE | 2017-12-31 11:49 | Internal Med Progress Note ---
Hospitalist Progress Note - Encounter Date of Encounter: 12/31/17 Time of Encounter: 08:30 - Subjective Interval History: Patient was seen and examined at bedside Denies pain, tolerating by mouth diet, denies overnight events She denies fever chills chest pain palpitations shortness of breath nausea vomiting diarrhea loss of function - Exam Vitals: Temp Pulse Resp BP Pulse Ox 98.4 F 86 16 121/69 96 12/30/17 23:14 12/30/17 23:14 12/30/17 23:14 12/30/17 23:14 12/30/17 23:14 Exam: General: Patient is alert, oriented, no acute distress, morbidly obese Head: atraumatic, normocephalic, Eye: normal appearance, PERRL, no scleral icterus, no conjunctival injection ENT: mucous membranes moist, normal external ear exam Neck: normal inspection, short neck, trachea midline, full ROM, no carotid bruits Chest: normal inspection, symmetric chest rise Respiratory: Decreased breath sounds secondary to body habitus, Good respiratory effort. Bilateral breath sounds are clear without wheezing, crackles, or rhonchi. Cardiovascular: Distant heart sounds secondary to body habitus Regular rate and rhythm. s1 and s2 No clicks, rubs, gallops, or murmors. Abdomen: Bowel sounds present normoactive x-4 quadrants. Abdomen is soft, nondistended. no Epigastric tenderness. No guarding or rebound. No organomegaly noted, obese musculoskeletal: Spontaneously moving all extremities. +3 edema of bilateral lower extremity left greater than right, no calf tenderness Skin: warm, dry, intact. Multiple ulcers and skin breakdown changes with purulence on the medial aspect of the left lower extremity, no foul-smelling smell associated, the area is warm to touch and has erythema. Neuro: Alert and oriented x4. Sensation light touch intact. Cranial nerves 2- 12 is intact. Not aphasic,r apid hand movements intact, [id number] intact, no focal deficit Psych: Patient's affect is normal - Assessment and Plan (1) Venous stasis ulcer of ankle with fat layer exposed Current Visit: Yes Status: Acute Assessment and Plan: Patient had wound cultures from the left leg which showed Pseudomonas Was treated as inpatient/outpatient with vancomycin, ceftriaxone, Bactrim and ciprofloxacin was recently added to her regimen without improvement on cefepime from 12/30/17 Blood cultures from 12/22 showed no growth repeat blood cultures sent 12/27- prelim no growth Has history of blood cultures drawn on 12/12 which were positive for strep agalactiae podiatry recommendations appreciated CT with IV contrast of the lower extremity was ordered however due to acute renal failure radiologist recommends MRI-she could not tolerate santyl ordered to be applied daily Wound care consulted ID recommendations appreciated - pending discharge Abx recommendations CPK 55 ESR 93 CRP 81 DVT study /- Left lower extremity: normal superficial and deep exam. Right lower extremity: normal contralateral exam. (2) Left leg cellulitis Current Visit: Yes Status: Acute Assessment and Plan: Management as per above (3) Bacteremia Current Visit: Yes Status: Resolved Assessment and Plan: Cultures x2 on 12/12 were positive for strep agalactiae Cultures were again repeated on 12/22 with no growth final report 2 sets of culture in process from 12/27- will follow TTE on 12/29 Normal LV chamber size, wall thickness and function. LVEF 65%. Normal right ventricular structure and function. Mildly dilated left atrium. No significant valvular abnormality. No evidence of gross valvular vegetation on current study. Mild pulmonary hypertension. Estimated RVSP is 42 mmHg. Estimated RA pressure is 10 mmHg. (4) Lymphedema of both lower extremities Current Visit: Yes Status: Chronic Assessment and Plan: Unclear etiology; chronic finding. Podiatry recommendations appreciated (5) Tobacco dependence Current Visit: Yes Status: Chronic Assessment and Plan: Says she quit 2 weeks ago after hospitalization. Continued reinforcement given. (6) Morbidly obese Current Visit: Yes Status: Acute Assessment and Plan: nutrition consulted counseled on nutrition (7) Pre-diabetes Current Visit: Yes Status: Acute Assessment and Plan: A1c is 5.8 Was counseled on nutrition We will follow fingersticks and cover with low-dose sliding scale (8) DVT prophylaxis Current Visit: Yes Status: Acute (9) Acute renal failure Current Visit: Yes Status: Resolved Assessment and Plan: Acute renal failure secondary to unknown etiology, ? medication induced , history of bacteremia ARF is now resolved Creatinine was 1.18 on 12/22 creatinine has trended down to WNL, GFR >60 CPK WNL urine eosonophils 0 renal US - no acute disease avoid nephrotoxic medications - Time Spent with Patient Total time spent is greater than 50% in coordination of care (as documented) at patient's floor/unit and/or counseling patient: Internal Medicine: Result - Labs CBC & Chem 7: 12/31/17 05:49 12/31/17 05:49 Labs: Short CBC 12/31/17 Range/Units 05:49 WBC 5.5 (4.3-11.1) K/mcL Hgb 9.7 L (11.5-15.4) g/dL Hct 31.3 L (35.3-44.9) % Plt Count 330 (140-400) K/mcL BMP 12/31/17 05:49 Sodium 140 Potassium 4.2 Chloride 104 Carbon Dioxide 29 BUN 15 Creatinine 1.02 Glucose 123 H Calcium 8.3 L Consult Discharge Plan - Plan Referrals: NONE,PCP [Primary Care Provider] - (1) Venous stasis ulcer of ankle with fat layer exposed Qualifiers: Varicose vein presence: with varicose veins Laterality: left Qualified Code( s): I83.023 - Varicose 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
--- NOTE | 2017-12-31 17:45 | Infectious Disease Progress No ---
Date of Encounter: 12/31/17 Time of Encounter: 11:15 - Assessment and Plan (1) Left leg cellulitis Current Visit: Yes Status: Acute Location: Left leg. Causative organism: Unclear. Likely secondary to chronic ulcer to the LLE. No SIRS criteria noted on exam. Blood cultures drawn 12/27/17 are NGTD. ESR 93, CRP 81. MRI attempted, but aborted due to patient not able to tolerate. Continue Cefepime 2 grams IV Q12H. (day 5 of treatment) Duration of treatment depends on the clinical picture, but likely 14 days. Treat through 01/09/18. Monitor renal function and for drug toxicity and dose-adjust antibiotics. Consult VAT prior to discharge for Powerglide placement. Will need weekly CBC, BUN/Cr, ESR, CRP. Will need weekly IV care per protocol. Follow up with ID 01/07/18 at 0900. (2) Acute kidney injury Current Visit: Yes Status: Acute Etiology unclear. Serum creatinine 1.53 on admission. Resolved. Continue to trend. Dose-adjust medications. Avoid nephrotoxins as able. (3) Venous stasis ulcer of ankle with fat layer exposed Current Visit: Yes Status: Acute Location: Left lower leg. Secondary to traumatic wound in January 2017. Non-healing due to lymphedema, venous stasis. Podiatry consulted to assist with wound management. ABIs normal. Qualifiers: Varicose vein presence: with varicose veins Laterality: left Qualified Code(s): I83.023 - Varicose 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 (4) Lymphedema of both lower extremities Current Visit: Yes Status: Chronic (5) Morbidly obese Current Visit: Yes Status: Acute - Subjective Interval history: Patient seen and examined. No acute events noted overnight. Patient states that overall her leg feels about the same. Denies any fevers, chills, or rigors. Denies chest pain, shortness of breath, or cough. Denies any vomiting or diarrhea. States nausea has resolved. Denies any abdominal pain or urinary complaints. Reports persistent pain in the left lower extremity and states she does not think it looks much better today. Infect Dis PN-Objective Data - Labs CBC & Chem 7: 12/31/17 05:49 12/31/17 05:49 Labs: Laboratory Results - last 24 hr 12/31/17 12/31/17 05:49 05:49 WBC 5.5 RBC 3.49 L Hgb 9.7 L Hct 31.3 L MCV 89.7 MCH 27.8 L MCHC 31.0 L RDW 13.5 Plt Count 330 MPV 9.6 Sodium 140 Potassium 4.2 Chloride 104 Carbon Dioxide 29 BUN 15 Creatinine 1.02 Est GFR ( Amer) > 60 Est GFR (Non-Af Amer) 56 L BUN/Creatinine Ratio 15 Glucose 123 H Calculated Osmolality 292 Calcium 8.3 L Cultures: Cultures 12/27/17 22:12 Blood Culture - Preliminary Peripheral Venipuncture Culture is incubating and being continuously monitored for growth. Final report to follow. 12/27/17 22:12 Blood Culture - Preliminary Peripheral Venipuncture Culture is incubating and being continuously monitored for growth. Final report to follow. Serology 12/30/17 12/28/17 Range/Units 09:47 11:03 Urine Color Yellow (Yellow) Urine Clarity Clear (Clear) Urine pH 7.0 (5.0-8.0) pH Units Ur Specific [place] 1.009 L (1.010-1.025) Urine Protein Negative (Neg-Trace) mg/dL Urine Glucose (UA) Normal (Normal) mg/dL Urine Ketones Negative (Negative) mg/dL Urine Blood Negative (Negative) Urine Nitrite Negative (Negative) Urine Bilirubin Negative (Negative) Urine Urobilinogen Normal (Normal) mg/dL Ur Leukocyte Esterase Negative (Negative) Ur Eosinophil Smear 0 (None Seen) % Ur Culture Indicated? NO (NO) Exam - Constitutional Vitals: Temp Pulse Resp BP Pulse Ox 97.6 F 85 16 164/77 90 12/31/17 12:01 12/31/17 12:01 12/31/17 12:01 12/31/17 12:01 12/31/17 12:01 General appearance: cooperative, morbidly obese, no acute distress - Head Head exam: Present: atraumatic, normal inspection, normocephalic - Eye Eye exam: Present: EOMI, normal appearance, PERRL Pupils: Present: normal accommodation - ENT ENT exam: Present: mucous membranes moist - Neck Neck exam: Present: normal inspection - Respiratory Respiratory exam: Present: CTAB. Absent: rales, respiratory distress, rhonchi, wheezes - Cardiovascular Cardiovascular exam: Present: RRR, +S1, +S2 - GI/Abdominal GI/Abdominal exam: Present: distended (obese), normal bowel sounds, soft. Absent: tenderness - Extremities Exam Extremities exam: Present: pedal edema, tenderness. Absent: joint swelling, normal inspection Additional comments: LLE pressure dressing noted to be C/D/I. - Neurological Exam Neurological exam: Present: alert, oriented X3, no focal deficits - Psychiatric Psychiatric exam: Present: normal affect, normal mood - Skin Skin exam: Present: dry, intact, normal color, warm Consult Discharge Plan - Plan Referrals: NONE,PCP [Primary Care Provider] - Korina San, [employer] [Advanced Practice Nurse] - 01/07/18 9:00 am Prescriptions: Cefepime HCl/Dextrose, Iso-Osm [Cefepime 2 gm Injection] 2 gm IV BID #23 mls - Attending Attestation I examined this patient and my medical decision-making was reviewed with the Resident Physician. I agree with the documented findings, disposition and treatment plan as described except to the extent set forth below.
[2017-12-31] MEDS: Ondansetron 4 MG/2 ML VIAL IVP PRN (21:35)
[2018-01-01] MEDS: *HR* HYDROcodone/Acet 5/325 mg TABLET PO PRN (02:05)
[2018-01-01 04:02] LABS: Hematocrit 32.7 % (35.3-44.9); Hemoglobin 10.2 g/dL (11.5-15.4); Mean Corpuscular HGB Conc 31.2 g/dL (31.6-35.5); Mean Corpuscular Volume 89.8 fL (83.0-100.0); Mean Platelet Volume 9.6 fL (9.4-12.4); Platelet Count 351 K/mcL (140-400); Red Blood Count 3.64 M/mcL (3.82-4.97); Red Cell Distribution Width 13.2 % (11.5-14.5)
[2018-01-01 04:23] LABS: BUN/Creatinine Ratio 14 (6-26); Blood Urea Nitrogen 13 mg/dL (6-20); Calcium 8.7 mg/dL (8.6-10.3); Carbon Dioxide 29 mEq/L (23-29); Chloride 104 mEq/L (98-107); Glucose 120 mg/dL (70-105); Osmolality,Calculated 291 (280-300); Potassium 3.9 mEq/L (3.5-5.1); Sodium 140 mEq/L (136-145); eGFR For Non-African Americans > 60 (> 60)
[2018-01-01] MEDS: Cefepime HCl 2,000 MG in 0.9 % Sodium Chloride Mini Bag 100 ML IVPB SCH (05:36)
[2018-01-01] MEDS: *HR* Heparin 5,000 UNIT/ML VIAL SQ SCH (05:36)
--- NOTE | 2018-01-01 07:17 | Discharge Summary ---
- NOTES TO OUTPATIENT PROVIDER Notes to Outpatient Provider: follow up with ID. follow blood glucose - she is prediabetic A1c is 5.8. follow BMP as she is on ABx. to follow up with [facility]. follow up with BP - had some hypertensive episodes Orders not resulted at time of discharge: Pending orders 12/27/17 22:12 Culture,Blood [BC] Routine Date of Encounter: 01/01/18 Time of Encounter: 07:13 - Discharge Diagnosis (1) Venous stasis ulcer of ankle with fat layer exposed Priority: Primary Status: Acute Qualifiers: Varicose vein presence: with varicose veins Laterality: left Qualified Code(s): I83.023 - Varicose 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 (2) Left leg cellulitis Priority: Secondary Status: Acute (3) Bacteremia Priority: Secondary Status: Resolved (4) Lymphedema of both lower extremities Priority: Secondary Status: Chronic (5) Tobacco dependence Priority: Secondary Status: Chronic (6) Morbidly obese Priority: Secondary Status: Acute (7) Pre-diabetes Priority: Secondary Status: Acute (8) DVT prophylaxis Priority: Secondary Status: Acute (9) Acute renal failure Priority: Secondary Status: Resolved Qualifiers: Acute renal failure type: unspecified Qualified Code(s): N17.9 - Acute kidney failure, unspecified Hospital course: Ms. Bryant is a 57 year old female with a past medical history of arthritis, GERD , migraines, venous stasis, and lymphedema of the bilateral lower extremities. The patient was admitted to the hospital December 27 for left leg cellulitis. she has had a LLE ulcer that started about 1 year ago and has been progresively worsening. She was admitted to [facility] and was diagnosed with cellulitis and group B strep bacteremia. She was treated with 3 days of Zosyn and 4 days of vancomycin while inpatient and was transitioned to IV Rocephin on discharge and completed an additional 7 days. Repeat blood cultures on December 22 1 set were negative. she did not improve after IV abx so she followed back at [facility] and ciprofloxacin was started. She was seen in wound care on admission day and was advised to come to the emergency department for evaluation due to regression of her wound. while in [facility] ED basic labs showed Acute renal failure, with elevated ESR 93 and CRP 81. she was started on IV vancomycin and zosyn Abx and blood cx were sent. she was also started on IV fluids for ARF. she remained Afebrile, without leukcytosis and vitals remained stable. podiatry was consulted and recommendations followed. she was unable to have CT of the LLE with IV contrast on admission due to ARF. MRI of the lower extremity was recommended as per radiologist but the patient was unable to complete the exam. BMP followed and ARF resolved with IV fluids, retroperitoneal US and TTE were performed results below. ID was consulted and Abx were changed to cefepime. blood cx obtained on 12/27 show NGTD on 01/01/18. ID recommended 14 days of IV Abx. she was found to have prediabetes A1c 5.8%. SW/Pt/OT was consulted for discharge and recommendations followed she was counseled on smoking cessation and weight loss. she is to follow up with PCP for frequent BMP and prediabetes management. woundcare as per podiatry Patient applying santyl at this time and allevyn in place Will write orders for dakins cleanse of the wounds with application of UNNA boot , kerlix and LIUDMILA for compression change MWF retroperitoneal US: IMPRESSION: Unremarkable ultrasound of the kidneys. TTE: Normal LV chamber size, wall thickness and function. LVEF 65%. Normal right ventricular structure and function. Mildly dilated left atrium. No significant valvular abnormality. No evidence of gross valvular vegetation on current study. Mild pulmonary hypertension. Estimated RVSP is 42 mmHg. Estimated RA pressure is 10 mmHg. Discharge discussed with: patient Time spent discussing smoking cessation with patient: more than 10 minutes - Time Spent with Patient Total time spent providing and/or coordinating discharge services: Less than 30 minutes - Discharge Medications Prescriptions: Acetaminophen [Tylenol] 650 mg PO Q6HR PRN #30 tablet PRN Reason: Mild Pain/Fever Cefepime HCl/Dextrose, Iso-Osm [Cefepime 2 gm Injection] 2 gm IV BID #23 mls Collagenase Oint [Santyl] 1 appl TP DAILY #1 tube Sodium Hypochlorite 0.25% [Dakin's (Half-Strength 0.25%)] 1 appl TP DAILY #1 bottle Home Medications: Oxybutynin Chloride [Ditropan Xl] 10 mg PO DAILY 12/29/17 [History] Cefepime HCl/Dextrose, Iso-Osm [Cefepime 2 gm Injection] 2 gm IV BID #23 mls 10/12 [Rx] Acetaminophen [Tylenol] 650 mg PO Q6HR PRN #30 tablet 01/01/18 [Rx] Collagenase Oint [Santyl] 1 appl TP DAILY #1 tube 01/01/18 [Rx] Sodium Hypochlorite 0.25% [Dakin's (Half-Strength 0.25%)] 1 appl TP DAILY #1 bottle 01/01/18 [Rx] Allergies/Adverse Reactions: 3 Allergy/AdvReac Type Severity Reaction Status Date / Time clindamycin AdvReac Vomiting Verified 12/28/17 15:56 Date of admission: 12/29/17 12:00 Primary care physician: PCP NONE Consults: 12/27/17 21:44 Consult to Podiatry [CONS] Routine Consulting Provider: [facility] Reason for Consult: morbidly obese woman with lymphedema transferred here for chronic leg ulcers with poor healing. Call Completed: No 12/28/17 07:30 Consult to Infectious Diseases [CONS] Routine Consulting Provider: Infectious Disease [facility] Reason for Consult: ABX RECOMMENDATIONS/DURATION FOR DISCHARGE OLD RECORDS REVIEWED AND SHOWED PSEUDOMONAS WAS ISOLATED FROM WOUND CX, WAS TREATED WITH VANCOMYCIN, CEFTRIAXONE AND TMP/SMX, CIPRO ADDED 3 DAYS BEFORE ADMISSION. NOW ON ZOSYN Call Completed: No 12/28/17 19:50 Consult to Case Management [CONS] Routine Comment: 12/31/17 11:49 Consult to Nutrition [CONS] Routine Comment: Consulting Provider: NUTRITION Reason for Dietary Consult: PO Supplementation 12/31/17 16:15 Consult to Invasive Line Access Team [CONS] Routine Reason for Consult: IV ATB Line Type: Midline - Constitutional Vitals: Temp Pulse Resp BP Pulse Ox 98.2 F 74 14 126/75 96 01/01/18 05:05 01/01/18 05:05 01/01/18 05:05 01/01/18 05:05 01/01/18 05:05 Exam: General: Patient is alert, oriented, no acute distress, morbidly obese Head: atraumatic, normocephalic, Eye: normal appearance, PERRL, no scleral icterus, no conjunctival injection ENT: mucous membranes moist, normal external ear exam Neck: normal inspection, short neck, trachea midline, full ROM, no carotid bruits Chest: normal inspection, symmetric chest rise Respiratory: Decreased breath sounds secondary to body habitus, Good respiratory effort. Bilateral breath sounds are clear without wheezing, crackles, or rhonchi. Cardiovascular: Distant heart sounds secondary to body habitus Regular rate and rhythm. s1 and s2 No clicks, rubs, gallops, or murmors. Abdomen: Bowel sounds present normoactive x-4 quadrants. Abdomen is soft, nondistended. no Epigastric tenderness. No guarding or rebound. No organomegaly noted, obese musculoskeletal: Spontaneously moving all extremities. +3 edema of bilateral lower extremity left greater than right, no calf tenderness Skin: warm, dry, intact. LLE is wrapped with liudmila bandage Neuro: Alert and oriented x4. Sensation light touch intact. Cranial nerves 2- 12 is intact. Not aphasic,r apid hand movements intact, [id number] intact, no focal deficit Psych: Patient's affect is normal - Patient Status Disposition: Home, Self-Care Condition: Fair Functional capacity at discharge: independent ambulation Overall status at discharge: patient is progressing back to baseline - Discharge Instructions Follow Up With: Korina San, CRATE OPENER [Advanced Practice Nurse] - 01/07/18 9:00 am NONE,PCP [Primary Care Provider] - - Diet and Activity Activity: resume usual activities as tolerated Diet: diabetic diet, low salt diet
[2018-01-01 07:37] VITALS: BP 142/80
--- NOTE | 2018-01-01 12:42 | Infectious Disease Progress No ---
Date of Encounter: 01/01/18 Time of Encounter: 10:55 - Assessment and Plan (1) Left leg cellulitis Current Visit: Yes Status: Acute Location: Left leg. Causative organism: Unclear. Likely secondary to chronic ulcer to the LLE. No SIRS criteria noted on exam. Blood cultures drawn 12/27/17 are NGTD. ESR 93, CRP 81. MRI attempted, but aborted due to patient not able to tolerate. Continue Cefepime 2 grams IV Q12H. (day 6 of treatment) Duration of treatment depends on the clinical picture, but likely 14 days. Treat through 01/09/18. Monitor renal function and for drug toxicity and dose-adjust antibiotics. Consult VAT prior to discharge for Powerglide placement. Will need weekly CBC, BUN/Cr, ESR, CRP. Will need weekly IV care per protocol. Follow up with ID 01/07/18 at 0900. (2) Acute kidney injury Current Visit: Yes Status: Acute Etiology unclear. Serum creatinine 1.53 on admission. Resolved. Continue to trend. Dose-adjust medications. Avoid nephrotoxins as able. (3) Venous stasis ulcer of ankle with fat layer exposed Current Visit: Yes Status: Acute Location: Left lower leg. Secondary to traumatic wound in January 2017. Non-healing due to lymphedema, venous stasis. Podiatry consulted to assist with wound management. ABIs normal. Qualifiers: Varicose vein presence: with varicose veins Laterality: left Qualified Code(s): I83.023 - Varicose 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 (4) Lymphedema of both lower extremities Current Visit: Yes Status: Chronic (5) Morbidly obese Current Visit: Yes Status: Acute - Subjective Interval history: Patient seen and examined. No acute events noted overnight. Patient states that overall her leg feels about the same. Denies any fevers, chills, or rigors. Denies chest pain, shortness of breath, or cough. Denies any vomiting or diarrhea. States nausea has resolved. Denies any abdominal pain or urinary complaints. Reports persistent pain in the left lower extremity. Infect Dis PN-Objective Data - Labs CBC & Chem 7: 01/01/18 03:41 01/01/18 03:41 Labs: Laboratory Results - last 24 hr 01/01/18 01/01/18 03:41 03:41 WBC 6.6 RBC 3.64 L Hgb 10.2 L Hct 32.7 L MCV 89.8 MCH 28.0 MCHC 31.2 L RDW 13.2 Plt Count 351 MPV 9.6 Sodium 140 Potassium 3.9 Chloride 104 Carbon Dioxide 29 BUN 13 Creatinine 0.95 Est GFR ( Amer) > 60 Est GFR (Non-Af Amer) > 60 BUN/Creatinine Ratio 14 Glucose 120 H Calculated Osmolality 291 Calcium 8.7 Cultures: Cultures 12/27/17 22:12 Blood Culture - Preliminary Peripheral Venipuncture Culture is incubating and being continuously monitored for growth. Final report to follow. 12/27/17 22:12 Blood Culture - Preliminary Peripheral Venipuncture Culture is incubating and being continuously monitored for growth. Final report to follow. Serology 12/30/17 12/28/17 Range/Units 09:47 11:03 Urine Color Yellow (Yellow) Urine Clarity Clear (Clear) Urine pH 7.0 (5.0-8.0) pH Units Ur Specific Baldwin 1.009 L (1.010-1.025) Urine Protein Negative (Neg-Trace) mg/dL Urine Glucose (UA) Normal (Normal) mg/dL Urine Ketones Negative (Negative) mg/dL Urine Blood Negative (Negative) Urine Nitrite Negative (Negative) Urine Bilirubin Negative (Negative) Urine Urobilinogen Normal (Normal) mg/dL Ur Leukocyte Esterase Negative (Negative) Ur Eosinophil Smear 0 (None Seen) % Ur Culture Indicated? NO (NO) Exam - Constitutional Vitals: Temp Pulse Resp BP Pulse Ox 97.9 F 86 15 142/80 93 01/01/18 07:31 01/01/18 07:31 01/01/18 07:31 01/01/18 07:31 01/01/18 07:31 General appearance: cooperative, morbidly obese, no acute distress - Head Head exam: Present: atraumatic, normal inspection, normocephalic - Eye Eye exam: Present: EOMI, normal appearance, PERRL Pupils: Present: normal accommodation - ENT ENT exam: Present: mucous membranes moist - Neck Neck exam: Present: normal inspection - Respiratory Respiratory exam: Present: CTAB. Absent: rales, respiratory distress, rhonchi, wheezes - Cardiovascular Cardiovascular exam: Present: RRR, +S1, +S2 - GI/Abdominal GI/Abdominal exam: Present: distended (obese), normal bowel sounds, soft. Absent: tenderness - Extremities Exam Extremities exam: Present: pedal edema (2+ LLE), tenderness (LLE). Absent: joint swelling, normal inspection (Venous stasis dermatitis noted to the BLE with lymphedema changes of the skin noted.) Additional comments: LLE erythema and swelling persist, but improved. LLE wound without drainage. - Neurological Exam Neurological exam: Present: alert, oriented X3, no focal deficits - Psychiatric Psychiatric exam: Present: normal affect, normal mood - Skin Skin exam: Present: dry, intact, normal color, warm Consult Discharge Plan - Plan Referrals: Korina San SUMMER SESSIONS DIRECTOR [Advanced Practice Nurse] - 01/07/18 9:00 am NONE,PCP [Primary Care Provider] - Prescriptions: Acetaminophen [Tylenol] 650 mg PO Q6HR PRN #30 tablet PRN Reason: Mild Pain/Fever Cefepime HCl/Dextrose, Iso-Osm [Cefepime 2 gm Injection] 2 gm IV BID #23 mls Collagenase Oint [Santyl] 1 appl TP DAILY #1 tube Sodium Hypochlorite 0.25% [Dakin's (Half-Strength 0.25%)] 1 appl TP DAILY #1 bottle
--- NOTE | 2018-01-01 13:55 | Physician Discharge Referral ---
Home Health/Hosp Referral Info Transfer to: Home Health (for nursing for IV Abx BMP weekly, wound care Patient applying santyl at this time and allevyn in place Will write orders for dakins cleanse of the wounds with application of UNNA boot, kerlix and DOMENIC for compression change MWF Elevate at all times.) - Diagnosis (1) Venous stasis ulcer of ankle with fat layer exposed Priority: Primary Status: Acute (2) Left leg cellulitis Priority: Secondary Status: Acute (3) Bacteremia Priority: Secondary Status: Resolved (4) Lymphedema of both lower extremities Priority: Secondary Status: Chronic (5) Tobacco dependence Priority: Secondary Status: Chronic (6) Morbidly obese Priority: Secondary Status: Acute (7) Pre-diabetes Priority: Secondary Status: Acute (8) DVT prophylaxis Priority: Secondary Status: Acute (9) Acute renal failure Priority: Secondary Status: Resolved - Respiratory Orders Smoking Cessation: Smoking cessation has been advised. For more information, call the [employer] Quit Line at [phone]-PYEO-NOW. - Dressing/Wound Care Site: LLE Patient applying santyl at this time and allevyn in place Will write orders for dakins cleanse of the wounds with application of UNNA boot , kerlix and DOMENIC for compression change MWF Elevate at all times. - Activity Activity Orders: Ambulate - Services Needed Following services are medically necessary services: Home Health Aide (Patient applying santyl at this time and allevyn in place Will write orders for dakins cleanse of the wounds with application of UNNA boot, kerlix and DOMENIC for compression change MWF Elevate at all times.) - Transfer Medications Prescriptions: Acetaminophen [Tylenol] 650 mg PO Q6HR PRN #30 tablet PRN Reason: Mild Pain/Fever Cefepime HCl/Dextrose, Iso-Osm [Cefepime 2 gm Injection] 2 gm IV BID #23 mls Collagenase Oint [Santyl] 1 appl TP DAILY #1 tube Sodium Hypochlorite 0.25% [Dakin's (Half-Strength 0.25%)] 1 appl TP DAILY #1 bottle Home Medications: Oxybutynin Chloride [Ditropan Xl] 10 mg PO DAILY 12/29/17 [History] Cefepime HCl/Dextrose, Iso-Osm [Cefepime 2 gm Injection] 2 gm IV BID #23 mls 10/12 [Rx] Acetaminophen [Tylenol] 650 mg PO Q6HR PRN #30 tablet 01/01/18 [Rx] Collagenase Oint [Santyl] 1 appl TP DAILY #1 tube 01/01/18 [Rx] Sodium Hypochlorite 0.25% [Dakin's (Half-Strength 0.25%)] 1 appl TP DAILY #1 bottle 01/01/18 [Rx] Allergies/Adverse Reactions: 3 Allergy/AdvReac Type Severity Reaction Status Date / Time clindamycin AdvReac Vomiting Verified 12/28/17 15:56 Certification: Further, I certify that my clinical findings support that this patient is homebound (i.e. absences from home require considerable and taxing effort and are for medical reasons or synagogue services or infrequently or short duration when for other reasons) because: Homebound Reason: Patient requires assistance of a person or device to safely leave home Attestation: My signature below is to certify that this patient is under my care and that I, or nurse practitioner, or a physician's habilitation assistant working with me, has a face-to -face encounter with this patient.
== END 2018-01-01 14:23 | disposition home or self-care (01) | DRG 300 ==
LOC: 3ANU → SUATTDRO 21:02
PROVIDERS: ADMIT Student in an Organized Health Care Education/Training Program; ATTEND Internal Medicine